=== PATIENT | male | born 1985 | race African-American/Black ===

== ENCOUNTER 2018-07-18 09:34 | Emergency (ER) | payer MEDICAID ==
[~2018-07-18] VITALS: Ht 177.8 cm; Wt 82.0 kg
[2018-07-18] MEDS ORDERED: LIDOCAINE HCL/EPINEPHRINE 1%-EPI 1:100,000 30 ML VIAL INFIL ONE (10:30)
[2018-07-18] MEDS ORDERED: LIDOCAINE HCL/EPINEPHRINE 1%-EPI 1:100,000 20 ML VIAL INFIL ONE (11:15)
[2018-07-18] MEDS ORDERED: IBUPROFEN 800MG TABLET PO ONE (11:45)
[2018-07-18 11:57] VITALS: BP 117/65
== END 2018-07-18 12:00 | disposition home or self-care (01) ==
LOC: ER 09:39
DX: L02.411 Cutaneous abscess of right axilla (principal); F17.200 Nicotine dependence, unspecified, uncomplicated; J45.909 Unspecified asthma, uncomplicated
CPT/HCPCS: 10060; 99283; 99406; J3490

== ENCOUNTER 2018-10-20 15:52 | Emergency (ER) | payer MEDICAID ==
[~2018-10-20] VITALS: Ht 177.8 cm; Wt 81.0 kg
[2018-10-20 16:01] VITALS: BP 130/70
== END 2018-10-20 19:55 | disposition left against medical advice (07) ==
LOC: ER 15:52
DX: Z53.21 Procedure and treatment not carried out due to patient leaving prior to being seen by health care provider (principal)